=== PATIENT | female | born 1980 | race Caucasian/White ===

== ENCOUNTER → 2016-07-29 | Outpatient (CLI) | payer MEDICAID ==
--- NOTE | 2016-07-29 19:43 | US ---
July 29, 2016 Dear Renée Arvizu PA-C, Thank you for allowing me to see your patient Rosanna Murray for detailed anatomy evaluat ion. As you know, she is a 36-year-old 3, para 2002, with a dating 29 weeks 3 day( s). Her due date is 10/11/2016 based on LMP consistent with 16-week ultrasound. Her history is signif icant for advanced maternal age (36 at EDC) and recent diagnosis of cholestasis. She had reassuring NIPT and AFP screening. ULTRASOUND Number of fetuses: 1 presentation: Breech Maximum vertical pocket: 6.7 cm Placenta - Appearance: Normal - Location: Fundal - Cord insertion: Intraplacental - Placenta previa: None Maternal Structures - Cervix: 5.6 cm Transabdominally - Uterus: No obvious masses or anomaly seen - The adnexa were evaluated. No pathology was seen. -- Right ovary not visualized -- Left ovary not visualized Measurements Biparietal diameter: 76 mm, 30 weeks 5 days Head circumference: 287 mm, 31 weeks 4 days Abdominal circumference: 255 mm, 29 weeks 5 days Femur length: 55 mm, 29 weeks 2 days Humerus length: 50 mm, 29 weeks 3 days Transcerebellar diameter: 36 mm, 30 weeks 1 days Nuchal Skinfold Thickness: N/A Average ultrasound age: 30 weeks 3 days Estimated weight: 1445 gm weight percentile: 48 % Anatomy Head and Neck: - Cranial shape and integrity: Normal - Cerebral lateral ventricles: Normal, 4.4 mm - Choroid plexus: Normal - Midline falx: Suboptimal - Cavum septum pellucidi: Normal - Brain parenchyma: Normal - Cerebellum: Normal - Cisternal Magna: Normal, 6.5 mm - Cerebellar vermis: Normal - Neck: Normal Face: - Upper lip: Normal - Profile: Normal - Coronal face: Normal - Alveolar ridge: Suboptimal Heart: - 4-chamber view: Normal - LVOT: Normal - RVOT: Normal - Aortic arch: Normal - SVC/IVC: Normal - 3 vessel view: Normal - heart rate: 135 bpm Lungs: Normal Diaphragm: Normal Abdomen: - Stomach: Normal - Kidneys: Right Normal, Left Normal - Bladder: Normal - Abdominal Cord Insertion: Suboptimal - Umbilical cord vessel number: 3 - Liver: Normal Spine: - Cervical: Normal - Thoracic: Normal - Lumbar: Normal - Sacral: Suboptimal - Shape and curvature: Normal Extremities: - Right upper extremity: Suboptimal - Right Hand: Suboptimal - Left upper extremity: Normal architecture and position - Left Hand: Suboptimal - Right lower extremity: Normal architecture and position - Right foot: Suboptimal - Left lower extremity: Normal architecture and position - Left foot: Suboptimal Genitalia: Female Impression: 1. Intrauterine at 29 weeks 3 day(s), ultrasound is consistent with her established LAURA of 10/11/2016. 2. Anatomy: The fetus measures appropriate for gestational age, measuring a normal weight and percen tile. Visualization of the fetus today reveals no overt structural anomalies. Several areas are subop timally visualized due to position. Visualization is unlikely to improve with advancing gestat ional age. There is evidence of normal amniotic fluid, and movement was seen during the examin ation. 3. Cervical length is normal at 6.7 cm without evidence of insufficiency. 4. Advanced maternal age. She had reassuring NIPT and AFP screening. 5. Cholestasis of . Rosanna reports that she has been having itching for a few months that h as worsened recently. On 07/20/2016 her bile acids were 115, which is significantly elevated. On the same date AST was 29 (WNL), ALT was slightly elevated at 35 (upper limit of normal 29), and total bi lirubin was 0.8 (WNL). She states that she had itching in her prior pregnancies but was never diagno sed with cholestasis. She started taking ursodiol 300 mg TID 2 days ago. She was scratching herself constantly during our visit and has excoriations on her hands and arms from scratching. Recommendations: With the assistance of the condenser tube tender I discussed today's ultrasound results with Rosanna as w ell as our recommendations for management of pregnancies affected by cholestasis. We discussed that there is an increased risk of stillbirth, which correlates to the degree of bile acid elevation. Cho lestasis has a high recurrence rate in subsequent pregnancies, up to 60-70%. Maternal treatment cons ists of symptom management. -Ursodiol can decrease bile acid levels, which should help improve her symptoms. She has only taken 4 or 5 total doses so far, so I have encouraged her to continue taking this. -We discussed that she can try taking Benadryl for her itching, which can be purchased over the count er, or she can be prescribed hydroxyzine. -Begin twice weekly NSTs with weekly amniotic fluid checks and continue this until delivery -Follow-up ultrasound for growth in 4 weeks -Given her significantly elevated bile acids I recommend planning for delivery at 37 weeks -We also reviewed kick counts and discussed precautions for when to seek medical attention Thank you for allowing us the opportunity to evaluate your patient. Should you have any further ques tions or concerns please do not hesitate to contact me. Approximately 30 minutes were spent with the patient, of which 25 minutes were spent in [id number] consultation discussing cholestasis with the assistance of the condenser tube tender. Machelle Colon M.D., Ph.D. Restorative Care Technician Department of Obstetrics and Gynecology [facility]
--- NOTE | 2016-07-30 13:54 | US ---
Complete Obstetric Ultrasound dated September 26, 2016 Indication: Check growth and anatomy. The estimated gestational age by LMP is 29 weeks 3 days yieldi ng an EDC of October 11, 2016. Comparison: None Findings: Number: 1 Presentation: Breech Placental location: Fundal Cervix: 5.6 cm transabdominal HR: 135 bpm MVP: 6.7 cm Biometry: Biparietal diameter: 7.6 cm 30 weeks 5 days Head circumference: 29 cm 31 weeks 4 days Abdominal circumference: 25.4 cm 29 weeks 5 days Femur length: 5.5 cm 29 weeks 2 days Humerus length: 5 cm 29 weeks 2 days HC/AC: 1.13 (0.99 - 1.21) FL/BPD: 73% FL/AC: 22% Average ultrasound age: 30 weeks 3 days EDC based on today's average ultrasound age: October 04, 2016 Estimated weight is 1445 +/- 211 gms. The estimated weight is at the 48 % based on previo us dating. ANATOMY SURVEY: Supratentorial brain: Normal Posterior fossa: Normal Spine: Normal Nose and lips: Normal Facial profile: Normal Heart: Four chamber heart. Intact interventricular septum. Cardiac outflow tracts: Normal Stomach: Normal Umbilical cord insertion: Normal Kidneys: Normal, no pyelectasis Bladder: Normal Number of cord vessels: Three Upper extremities: Normal Lower extremities: Normal. No clubbing. Impression: 1. Living haw[place] . Size concordant with dates. The estimated gestational age by biometry is 30 weeks 3 days yielding an EDC of October 04, 2016. 2. Unremarkable anatomy. No anomalies detected. 3. Please see additional consultation by Dr. Machelle Colon.
== END ==
LOC: FIMAGING 13:34
PROVIDERS: ATTEND Physician Assistant
DX: O09.522 Supervision of elderly multigravida, second trimester (principal); Z3A.29 29 weeks gestation of pregnancy

== ENCOUNTER → 2016-08-26 | Outpatient (CLI) | payer MEDICAID | LOC: FIMAGING 14:21 | PROVIDERS: ATTEND Physician Assistant | DX: O09.522 Supervision of elderly multigravida, second trimester (principal); Z3A.33 33 weeks gestation of pregnancy ==

== ENCOUNTER → 2017-05-16 | Outpatient (CLI) | payer MEDICAID ==
[~2017-05-16] MED LIST: LIDOCAINE 1% 300 MG/30 ML SDV ONE
== END ==
LOC: FIMAGING 12:10
PROVIDERS: ATTEND Physician Assistant
PROC: 0G9K3ZX Drainage of Thyroid Gland, Percutaneous Approach, Diagnostic (ICD-10-PCS; principal; 2017-05-16)
DX: E04.1 Nontoxic single thyroid nodule (principal)